=== PATIENT | female | born 1980 | race American Indian/Alaskan Native ===

== ENCOUNTER 2017-04-19 02:25 | Emergency (ER) | payer SELFPAY ==
--- NOTE | 2017-04-19 02:30 | ED PDOC ---
Arrival/HPI - General Time Seen by Provider: 04/19/17 02:26 Historian: Patient - History of Present Illness Narrative History of Present Illness (Text): 04/19/17 02:30 Trinity Kellogg is a 37 year old female who presents to the Emergency department complaining of cough. Patient states she was has been experiencing persistent dry cough with associated intermittent wheezing, and shortness of breath for 2 weeks. Patient states she was initially seen at an Urgent Care center 2 weeks ago when her symptoms began and was prescribed a Z-mike, prednisone, and a meter-dose inhaler. Patient reports some relief for approximately 2-3 days but then symptoms return. Patient states she returned to the Urgent Care 2 days ago, was given a Solu-medrol injection and another prescription for prednisone, which she still taking. Patient denies any fever, chills, nausea, vomiting, diarrhea, back pain, headache, dizziness, or any other complaints. Time/Duration: < month (2 weeks) Symptom Onset: Gradual Symptom Course: Unchanged Activities at Onset: Light Context: Home Past Medical History - Provider Review Nursing Documentation Reviewed: Yes Family/Social History - Physician Review Nursing Documentation Reviewed: Yes Family/Social History: Unknown Family HX Allergies/Home Meds Allergies/Adverse Reactions: Allergies No Known Allergies Allergy (Verified 04/19/17 02:31) Review of Systems - Physician Review All systems were reviewed & negative as marked: Yes - Review of Systems Constitutional: Fevers Eyes: Normal ENT: Normal Respiratory: SOB, Cough, Wheezing Cardiovascular: Normal. absent: Chest Pain Gastrointestinal: Normal. absent: Abdominal Pain, Diarrhea, Nausea, Vomiting Genitourinary Female: Normal. absent: Dysuria, Frequency, Hematuria, Urine Output Changes Musculoskeletal: Normal. absent: Back Pain, Neck Pain Skin: Normal. absent: Rash Neurological: Normal. absent: Headache, Dizziness Endocrine: Normal Hemo/Lymphatic: Normal Psychiatric: Normal Physical Exam Vital Signs Reviewed: Yes Vital Signs Temp Pulse Resp BP Pulse Ox 04/19/17 04:00 16 04/19/17 02:45 16 04/19/17 02:31 98.9 F 114 H 24 149/68 99 Temperature: Afebrile Blood Pressure: Normal Pulse: Regular Respiratory Rate: Normal Appearance: Positive for: Well-Appearing, Non-Toxic, Comfortable Pain Distress: None Mental Status: Positive for: Alert and Oriented X 3 - Systems Exam Head: Present: Atraumatic, Normocephalic Pupils: Present: PERRL Extroacular Muscles: Present: EOMI Conjunctiva: Present: Normal Mouth: Present: Moist Mucous Membranes Neck: Present: Normal Range of Motion Respiratory/Chest: Present: Wheezes. No: Respiratory Distress, Accessory Muscle Use Cardiovascular: Present: Regular Rate and Rhythm, Normal S1, S2. No: Murmurs Abdomen: Present: Normal Bowel Sounds. No: Tenderness, Distention, Peritoneal Signs Back: Present: Normal Inspection Upper Extremity: Present: Normal Inspection. No: Cyanosis, Edema Lower Extremity: Present: Normal Inspection. No: Edema Neurological: Present: GCS=15, CN II-XII Intact, Speech Normal Skin: Present: Warm, Dry, Normal Color. No: Rashes Psychiatric: Present: Alert, Oriented x 3, Normal Insight, Normal Concentration Medical Decision Making ED Course and Treatment: 04/19/17 02:30 Impression: 37 year old female complaining of persistent dry cough, wheezing, and shortness of breath x 2 weeks. Differential Diagnosis included but are not limited to: URI vs. bronchitis Plan: -- Chest X-ray -- Rapid influenza -- Duoneb -- Solu-medrol -- Reassess and disposition Progress Notes: 04/19/17 04:10 Reviewed radiology, Chest X-ray shows no acute processes. 04/19/17 04:20 On reevaluation the patient feels better and is in no acute distress. I have discussed the results and plan with the patient, who expresses understanding. Patient given the opportunity to ask question, all questions were answered and there is agreement with the plan to discharge the patient home. Patient is stable for discharge. Patient was instructed to follow up with physician/clinic in 1-2 days or return if symptoms persist/worsen or new concerning symptoms arise. - Lab Interpretations Lab Results: Lab Results 04/19/17 03:05: Influenza Typ A,B (EIA) Negative for flu a/b I have reviewed the lab results: Yes - RAD Interpretation Radiology Orders: 04/19/17 02:48 CHEST TWO VIEWS (PA/LAT) [RAD] Stat Director Of Learning: ED Physician - Medication Orders Current Medication Orders: Discontinued Medications Albuterol/Ipratropium (Duoneb 3 Mg/0.5 Mg (3 Ml) Ud) 3 ml IH Q15M NEW Stop: 04/19/17 03:16 Last Admin: 04/19/17 03:21 Dose: 3 ml Methylprednisolone (Solu-Medrol) 60 mg IVP ONCE ONE Stop: 04/19/17 02:34 Last Admin: 04/19/17 03:01 Dose: 60 mg IVP Administration Document 04/19/17 03:01 SC (Rec: 04/19/17 03:01 SC [id number]) Charges for Administration # of IVP Administrations 1 - Scribe Statement The provider has reviewed the documentation as recorded by the Steph Smith Provider Scribe Attestation: All medical record entries made by the Scribe were at my direction and personally dictated by me. I have reviewed the chart and agree that the record accurately reflects my personal performance of the history, physical exam, medical decision making, and the department course for this patient. I have also personally directed, reviewed, and agree with the discharge instructions and disposition. Disposition/Present on Arrival - Present on Arrival Any Indicators Present on Arrival: No - Disposition Have Diagnosis and Disposition been Completed?: Yes Diagnosis: Upper respiratory infection Disposition: HOME/ ROUTINE Disposition Time: 04:20 Condition: GOOD Discharge Instructions (ExitCare): Acute Bronchitis (ED) Prescriptions: levoFLOXacin [Levaquin] 500 mg PO DAILY #10 tab Promethazine/Codeine [Codeine/Promethazine 10 MG/5 Ml-6.25 MG/5 Ml] 5 ml PO QID #150 ml Referrals: Gabbie Edwards MD [Primary Care Provider] - Follow up with primary Forms: [employer] ([place]ian)
[2017-04-19 02:31] VITALS: BMI 32.8
[2017-04-19 02:33] VITALS: BP 149/68; PULSE 114; TEMP 98.9; O2SAT 99
[2017-04-19] MEDS: Albuterol-Ipratrop 3 mg / 0.5 (3 ml) UD IH SCH ×3 (02:45→03:21)
[2017-04-19 04:17] VITALS: RESP 16
--- NOTE | 2017-04-19 07:21 | RAD ---
HISTORY: sob COMPARISON: None available. TECHNIQUE: Chest PA and lateral FINDINGS: Examination limited by habitus. LUNGS: No focal consolidation. Scattered probable tiny calcified granulomas. Please note that chest x-ray has limited sensitivity for the detection of pulmonary masses. PLEURA: No significant pleural effusion identified. No definite pneumothorax . CARDIOVASCULAR: Heart size appears within normal limits. OSSEOUS STRUCTURES: Degenerative changes of the spine. VISUALIZED UPPER ABDOMEN: Unremarkable. OTHER FINDINGS: None. IMPRESSION: No focal consolidation, significant pleural effusion, or definite pneumothorax identified.
== END 2017-04-19 04:29 | disposition home or self-care (01) ==
LOC: ED 02:25
DX: J06.9 Acute upper respiratory infection, unspecified (principal)
CPT/HCPCS: 71020; 87804; 96374; 99284; J2930